=== PATIENT | female | born 1950 | race Caucasian/White ===

== ENCOUNTER → 2016-11-23 | Outpatient (CLI) | payer MEDICARE, OTHER ==
[~2016-11-23] MED LIST: ACETAMINOPHEN650 M1 PO; ALPRAZOLAM PO; ALPRAZOLAM0.5 MG PO; AMLODIPINE BESYL5 MG PO; AMLODIPINE PO; APRESOLINE PO; ASPIRIN PO; ASPIRIN81 M1 PO; ATENOLOL; ATENOLOL PO; ATENOLOL25 MG PO; ATENOLOL50 MG PO; AZOR 5-20 MG T1 EACH PO; B COMPLEX/FOLIC1 TAB PO; B COMPLEX1 CA1 PO; B12; CELEXA PO; CELEXA20 MG PO; CITALOPRAM PO; FERROUS SULFATE PO; FLEXERIL PO; FUROSEMIDE PO; GABAPENTIN PO; HCTZ PO; HUMALOG; HUMALOG100 U/ML INJ; HUMALOG100 U/ML SUBQ; HYDRALAZINE HC100 MG; HYDRALAZINE HC100 MG PO; HYDROCODON-ACE1 EAC7 PO; HYDROCODONE-APA1 T42 PO; IRON PO; IRON TAB; IRON325 ( 652 PO; IRON45 MG PO; KEPPRA500 MG PO; KEPPRA750 M1 PO; LANSOPRAZOLE30 M1 PO; LANSOPRAZOLE30 MG PO; LANTUS; LANTUS SUBQ; LANTUS100 U/ML INJ; LANTUS100 U/ML SUBQ; LANTUS100 UNITS/ SUBQ; LASIX PO; LASIX20 MG PO; LEVAQUIN PO; LISINOPRIL PO; LORTAB 10/500 T1 TAB PO; LORTAB 5/500 TA1 TA1 PO; LORTAB 7.5-5001 TAB PO; LOSARTAN POTASS50 MG PO; MELOXICAM; MELOXICAM15 MG PO; METFORMIN HCL500 M3 PO; MOBIC PO; NEURONTIN PO; NIFEREX-150150 MG PO; NORVASC PO; OMEPRAZOLE PO; PHENERGAN PO; PHENERGAN25 MG PO; PRAVACHOL PO; PRAVASTATIN PO; PRAVASTATIN SOD40 MG PO; PRILOSEC PO; PROTONIX PO; TENORMIN25 MG PO; TENORMIN50 MG PO; VIT B-12 PO; VITAMIN B-COMPL1 CA1 PO; VITAMIN D PO; VITAMIN D1000 UNI1 PO; VITAMIN D1000 UNIT PO; VOLTAREN75 MG PO; WELLBUTRIN PO; XANAX0.5 MG PO; [UNRECOGNIZED DRUG - OTHER] PO
--- NOTE | ~2016-11-23 | CT2 ---
[facility] A Service of [facility] & [facility] RADIOLOGY TEXT RESULTS PATIENT: MELVIN ZAVALA LOCATION: [facility] : 50 UNIT #: [id number] AGE: [address]: Yoav Knight MD SEX: F ORDER DR: [id number] [facility] [address] [place], [place] [address] [id number] O MR#: [id number] Acc #: [id number] NAME: MELVIN ZAVALA. : 1950 SEX: F STUDY DATE/TIME: 11/23/2016 14:32 UNIT: [facility] ROOM: STUDY DESCRIPTION: CT Abd and Pelv W Cont Attending Physician: Yoav Knight M.D. Referring Physician: Yoav Knight M.D. Ordering Physician: Yoav Knight M.D. Primary Care Physician: Romero Arenas M.D. MEDICAL IMAGING REPORT This report is preliminary unless electronic signature is present EXAM Abdomen and pelvis CT with contrast, 11/23/2016 INDICATIONS 66-year-old female with history of pancreatic pseudocyst, stomach pain, epigastric pain for a month, worse after meals. History of diabetes, hypertension, congestive heart failure, cholecystectomy, hysterectomy and pancreatic stent placement. TECHNIQUE Contrast-enhanced abdomen and pelvis CT was performed. COMPARISON 11/24/[address] ABDOMEN: Included lung bases are clear. There is a tiny noncalcified 3 mm micronodule in the left lower lobe, unchanged from 2012. Tortuous right pulmonary vein unchanged for technical factors. No pericardial or pleural effusion. Aorta demonstrates atherosclerotic change but no aneurysm or dissection. The spleen is absent, presumably surgically absent but this should be correlated with surgical history. The pancreas is atrophic. There is a caliber change and density change in the pancreatic tissue at the junction of the proximal and mid body of the pancreas. This spans a distance of about 2.8 cm x 2.3 cm. There is a dystrophic calcification or metallic clip within the area of low attenuation pancreatic tissue which may represent sequela of postoperative change or focal pancreatic atrophy and scarring/fibrosis. A pancreatic mass is in the differential but felt to be less likely. Suggest initial comparison to a more recent CT scans that may have been performed outside facilities for assessment of stability. [facility] A Service of [facility] & [facility] RADIOLOGY TEXT RESULTS PATIENT: MELVIN ZAVALA LOCATION: [facility] : 50 UNIT #: [id number] AGE: [address]: Yoav Knight MD SEX: F ORDER DR: If this is new or enlarging compared to prior outside comparison studies then multiphase protocol CT would be recommended for further assessment. Previously demonstrated pseudocysts in the pancreatic tail extending to the splenic hilum have been presumably surgically resected or otherwise resolved. There is no peripancreatic adenopathy or fluid collection at this time. Tiny reactive-appearing peripancreatic and gastrohepatic nodes are present measuring less than a centimeter short axis. The peripancreatic vasculature is patent. Splenic vein has been ligated. There is fatty infiltration of the liver. Gallbladder surgically absent. Kidneys unremarkable. No retroperitoneal adenopathy. CT PELVIS: Bladder unremarkable. No drainable fluid collection in the pelvis or adnexal mass. No free fluid identified. Moderate stool burden in the colon. No bowel obstruction. The appendix is normal. Inguinal canal is unremarkable. No suspicious bone lesion. There are degenerative changes in the lumbar spine. There is mild levoscoliosis. IMPRESSION 1. There is no clearly acute process in the abdomen or pelvis. No bowel obstruction, drainable fluid collection or focal area of inflammatory change and the appendix is normal. 2. 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 Suggest comparison to more recent abdomen and pelvis CTs to assess stability of this finding. The most recent comparison we have is from 2012. Although this is favored to be postoperative in nature and represent scarring the possibility of a pancreatic mass is not excluded. If this is new or more prominent compared to recent comparison CT scans then multiphase imaging would be recommended for further assessment of this area. At this point there is no drainable fluid collection or focal area of inflammatory change to suggest acute pancreatitis. Previously demonstrated pseudocysts have resolved or have been surgically resected. 3. There is surgically absence of the gallbladder. 4. Incidental findings include the followin. Fatty infiltration of the liver. 2. Degenerative change in the lumbar spine. Dictated by... Mohan Fuentes M.D. THIS IS AN ELECTRONICALLY VERIFIED REPORT Mohan Fuentes M.D. at 11/24/2016 7:35 AM MARIA C/dee TD: 11/24/2016 01:04 [facility] A Service of [facility] RADIOLOGY TEXT RESULTS PATIENT: MELVIN ZAVALA LOCATION: [facility] : 50 UNIT #: [id number] AGE: [address]: Yoav Knight MD SEX: F ORDER DR: YOLA #: [id number] MEDICAL IMAGING REPORT Page 1 of 1 COPY
[2016-11-23 13:42] LABS: BLOOD UREA NITROGEN 13 mg/dL (9-23); CREATININE SERUM 0.9 mg/dL (0.6-1.4); GLOM FILT RATE Estimated ABOVE60 mL/min (>60)
== END | disposition home or self-care (01) ==
LOC: CCAT 12:44
PROVIDERS: Specialist
DX: K86.3 Pseudocyst of pancreas (principal); K76.0 Fatty (change of) liver, not elsewhere classified; M47.816 Spondylosis without myelopathy or radiculopathy, lumbar region; Z90.49 Acquired absence of other specified parts of digestive tract
CPT/HCPCS: 36415; 74177; 82565; 84520; Q9967

== ENCOUNTER → 2016-12-08 | Day surgery (SDC) | payer MEDICARE, OTHER ==
--- NOTE | ~2016-12-08 | OR ---
Unit #: [id number] #: [id number] Patient: MELVIN ZAVALA [id number] [facility] [address] [place], [place] [address] [id number] O MR#: [id number] NAME: MELVIN ZAVALA ROOM: Date of Procedure: 12/08/2016 Admission Date: 12/08/2016 Surgeon: Yoav Knight M.D. : 1950 Attending Physician: Yoav Knight M.D. Referring Physician: Yoav Knight M.D. Primary Care Physician: Romero Arenas M.D. OPERATIVE REPORT PRIMARY CARE PHYSICIAN Dr. Arenas. PREOPERATIVE DIAGNOSES Chronic epigastric discomfort and request for colorectal cancer screening. POSTOPERATIVE DIAGNOSES Mild gastritis, melanosis of the duodenum, 2 cm hiatal hernia, normal colon and rectum. PROCEDURE PERFORMED Esophagogastroduodenoscopy with biopsy x2 and colonoscopy to cecum. ANESTHESIA Monitored anesthesia. 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 She has ended up requiring a distal pancreatectomy. She was complaining of some persistent epigastric pain that she stated bored through to her back. She has not had any hematemesis, hematochezia, or melena, and has not had any weight loss. She also was due for colorectal cancer screening. DESCRIPTION OF PROCEDURE The patient was admitted to [facility], positively identified, and transported to the endoscopy unit, where after appropriate monitoring and positioning, a bite block was placed and she was sedated by the nurse stippler. The endoscope was passed through the oral cavity into the esophagus. Under direct vision, we passed through the esophagus. The GE junction was well demarcated at 35 to 36 cm from the incisors and there was no esophagitis and no Barry mucosa. I easily passed into the stomach and insufflated the stomach. The pylorus was identified and we passed through the pylorus and the duodenum. Duodenum and duodenal bulb were normal except for some melanosis at the junction of the third and fourth portions of the duodenum. There was no stricture, but there was some scarring and I could not pass the scope beyond this area. It probably is a result of some scarring from mobilization of the duodenum during her pancreatectomy. But again, I could see the lumen and the lumen appeared adequate. As we came back in a retrograde fashion, the biopsy from the melanosis was taken. There was no ulcer disease or other abnormalities in the duodenum. As we reached the stomach, a biopsy for Unit #: [id number] #: [id number] Patient: MELVIN ZAVALA GRECIA testing was taken because of some mild gastritis. In retroflexing the scope, there was no other findings in the upper fundus and cardia except for small hiatal hernia which we measured in a retrograde fashion 2 to 3 cm. The rest of the esophagus and larynx were normal. After completion of the upper scope, the patient was repositioned. On rectal examination, there was no anorectal abnormality. Digital exam was normal. Colonoscope was passed through the anal verge throughout the extent of the colon to the cecum. Appendiceal orifice and ileocecal valve were visualized and documented. On careful antegrade and retrograde visualization, there were no abnormalities throughout the colon or rectum. The patient tolerated the procedure well and transported to recovery in stable condition. Findings were discussed with her family. We will await the biopsy results and the CLOtest results. Because of the area of abnormality at the junction of third and fourth portion of duodenum, although, I think it is just routine postoperative scarring. I will get an upper GI and small bowel follow-through to ensure that there is not an abnormality that could not be visualized. I do not know if this could be contributing to her discomfort or whether it is just chronic pain from her previous pancreatectomy. As far as her colon that was normal, she should not require another colorectal cancer screening for 10 years unless she becomes symptomatic. Dictated by... Tete Jones/nallely TD: 12/08/2016 08:34 JOB #: [id number] OPERATIVE REPORT Page 1 of 1 X Yoav Knight MD PROCEDURE OPERATIVE NOTE
== END | disposition home or self-care (01) ==
LOC: COPS 05:51
DX: Z12.11 Encounter for screening for malignant neoplasm of colon (principal); K31.89 Other diseases of stomach and duodenum; K29.70 Gastritis, unspecified, without bleeding; K63.89 Other specified diseases of intestine; K44.9 Diaphragmatic hernia without obstruction or gangrene; E11.9 Type 2 diabetes mellitus without complications; I11.0 Hypertensive heart disease with heart failure; I50.9 Heart failure, unspecified; D64.9 Anemia, unspecified; K59.00 Constipation, unspecified; K21.9 Gastro-esophageal reflux disease without esophagitis; Z79.899 Other long term (current) drug therapy; Z90.49 Acquired absence of other specified parts of digestive tract; Z90.411 Acquired partial absence of pancreas; Z90.710 Acquired absence of both cervix and uterus; Z90.721 Acquired absence of ovaries, unilateral; Z96.659 Presence of unspecified artificial knee joint; Z98.890 Other specified postprocedural states
CPT/HCPCS: 43239; G0121; 87077; 88305; 88313; J2250